=== PATIENT | female | born 2000 | race Two or more races ===

== ENCOUNTER 2022-07-27 13:45 | Emergency (ER) | payer BC ==
[~2022-07-27] VITALS: Ht 165.1 cm; Wt 107.0 kg
[2022-07-27 15:21] VITALS: BP 124/74
[2022-07-27] MEDS ORDERED: AZIT500T66 PO (15:26)
== END 2022-07-27 15:40 | disposition home or self-care (01) ==
LOC: ER 13:45
DX: J03.90 Acute tonsillitis, unspecified (principal)
CPT/HCPCS: 71045